=== PATIENT | male | born 1955 | race Caucasian/White ===

== ENCOUNTER 2024-06-15 09:54 | Observation (INO) ==
--- NOTE | 2024-06-03 15:14 | Anesthesiology Consultation ---
Date of Service June 03, 2024 Assessment & Plan (1) Encounter for pre-operative examination: - Check CBC DOS (not done with most recent labs) - Cardiology visit (04/26/24): "...most recent thyroid studies dated 04/20/24 show a suppressed TSH of 0.142 uIu/mL, but his T3 and T4 levels are both within the normal range at 2.84 pg/mL and 1.19 ng/dL respectively. Patient continues to feel poorly when he is in atrial fibrillation, and now that his T3 and T4 levels are within normal range it think it is appropriate to attempt a cardioversion to get him back into a normal sinus rhythm..." > Cardioversion done 04/30/24 at [facility]. 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 Patient has developed abnormal LFTs several times when challenged with small dose of Tapazole therapy. He is not a candidate for GLORIA treatment because of longstanding impact of amiodarone. He will be best benefited by thyroidectomy as it will be a permanent cure for his disease. We will check the blood work again today as he has been off Tapazole now for the last 3 weeks and his body seems to rebound very quickly. Further adjustment will be based on the lab work. I will also connect with the ENT surgeon to see if he needs preparation with SSKI 1 week before the surgery.. Abnormal LFTs.. Improved after discontinuation of Tapazole but will check again today and see what happens." > LFT normalized/WNL on 05/11/24 labs. - PCP visit (05/28/24): "Rapid testing done in our office is positive for influenza A. COVID test negative. I recommend treatment with Tamiflu x 5 days. He was advised to call if symptoms are worsening despite treatment. He should also call if he is seeing more frequent hemoptysis than what he currently describes. His surgery date is 06/15 - I told him that he should feel that he is fully recovered before surgery. If not, he should push back surgery date. He is in agreement and will keep me updated.. He does seem to be back in atrial fibrillation today. His shotweld operator has told him that she does not think he will stay in NSR until his thyroid is removed. At this time, rate is controlled. He is on Xarelto and metoprolol. No changes made today." > At anesthesiologist discretion DOS if updated EKG needed preoperatively from their perspective. - Infectious disease screening: Per PAT overhead line worker on 06/03/24- No known recent infectious disease contacts. Patient tested positive for influenza A 05/28/24. S/P Tamiflu completion. Symptoms resolved except residual "slight" cough and fatigue. DOS 06/15/24. Patient advised to contact surgeon/PAT if not at baseline prior to DOS. Nothing further needed at this time. - Patient acceptable risk for given surgery pending evaluation DOS. Chart Review Chart Review: Patient NOT seen in Pre Admission Testing History Surgery Operation Date: 06/15/24 12:00 Proposed Procedures p Total Thyroidectomy with Complex Wound Repair - Jed Quigley MD Height/Weight Height: 5 ft 11 in Weight: 81.647 kg Allergies Allergy/AdvReac Type Severity Reaction Status Date / Time No Known Drug Allergies Allergy Unknown Verified 06/03/24 14:29 Medications Home Medications Medication Instructions Recorded Confirmed Last Taken sildenafil (pulm.hypertension) 20 100 mg (5 x 20 mg) PO ONCE PRN 06/18/23 06/03/24 Unknown mg tablet sexual activity #30 tabs doxazosin 2 mg tablet 2 mg PO HS high blood pressure #90 04/14/24 06/03/24 Unknown tabs rivaroxaban 20 mg tablet (Xarelto) 20 mg PO QAM #90 tabs 04/19/24 06/03/24 04/29/24 omeprazole 20 mg capsule,delayed 20 mg PO DAILY PRN Acid Reflux 04/21/24 06/03/24 Unknown release metoprolol succinate 25 mg 25 mg PO HS 04/28/24 06/03/24 04/29/24 tablet,extended release 24 hr rosuvastatin 5 mg tablet 5 mg PO UD 04/28/24 06/03/24 Unknown sertraline 50 mg tablet 50 mg PO QAM 04/28/24 06/03/24 Unknown prednisone 20 mg tablet 20 mg PO QAM 05/28/24 06/03/24 Unknown losartan 100 mg tablet 100 mg PO QAM 06/03/24 06/03/24 Unknown Past Medical History Medical History Amiodarone-induced hyperthyroidism Anxiety Atrial fibrillation Most recent cardioversion 04/30/24 Follows with [facility] cardio Chronic venous insufficiency Erectile dysfunction GERD (gastroesophageal reflux disease) Hiatal hernia History of COVID-19 (2021) mild History of diverticulosis HTN (hypertension) Hx of colonic polyps Hyperlipidemia Hyperthyroidism Mitral insufficiency Mitral valve posterior leaflet prolapse moderate MR Myxomatous mitral valve Past Family History Family History Father Diabetes Hypertension Myocardial infarction Sudden Brother Diabetes Denies family history of Ovarian cancer Prostate cancer Breast cancer Lung cancer Colorectal cancer Stroke Past Surgical History Surgical History H/O hernia repair abdominal History of cardiac radiofrequency ablation (2021) [facility] [place] History of cardioversion 2021, 04/30/24 History of cataract surgery R/L History of esophagogastroduodenoscopy (EGD) History of tooth extraction Hx of colonoscopy with polypectomy Hx of vein stripping left leg Nausea and vomiting after administration of anesthetic agent Status post circumferential ablation of pulmonary vein Social History Smoking Status: Never smoker Do You Dip or Chew Tobacco: No Hx Alcohol Use: Yes Alcohol type: beer alcohol intake frequency: a few times a month Alcohol Intake Frequency Comment: socially Hx Substance Use: No substance use type: does not use Lab Results Anesthesia Preop Results Results Anesthesia Widget: Na 136 mmol/L (136-145) 05/11/24 K 4.2 mmol/L (3.5-5.1) 05/11/24 Cl 104 mmol/L (98-107) 05/11/24 CO2 27 mmol/L (21-32) 05/11/24 BUN 19 mg/dl (6-23) 05/11/24 Creat 1.01 mg/dl (0.6-1.4) 05/11/24 Glucose Level 155 mg/dl (70-99(Fasting)) H 05/11/24 TSH 0.329 uIu/ml (0.300-4.500) 05/11/24 Free T4 1.00 ng/dl (0.61-1.60) 05/11/24 SARS-CoV-2, RNA, NAAT Negative 05/28/24 Testing Electrocardiogram Date: 04/30/24 NSR at 73bpm. Minimal voltage criteria for LVH, may be normal variant (R in aVL). Echocardiogram Date: 10/14/22 EF 60-65% Normal LV wall motion Prolapse of the posterior mitral leaflet Moderate mitral regurgitation Grade II diastolic dysfunction Mild tricuspid regurgitation Stress Test Date: 05/29/23 Negative stress echo at 86% MPHR EF 60-65% No regional wall motion abnormalities Mild cLVH Mild LA dilation Myxomatous mitral valve with posterior mitral leaflet prolapse and moderate eccentric mitral regurgitation Other Testing Thyroid ultrasound 01/01/24 1. Slightly heterogeneous thyroid gland with no significant hyperemia shown on color imaging. 2. No suspicious thyroid lesion is seen.
[~2024-06-15 09:54] MED LIST: DEXAMETHASONE SOD INJ 4 MG/ML VIAL ONE; GLYCOPYRROLATE 0.2 MG/ML VIAL ONE; LIDOCAINE 2% 2 ML VIAL/AMP(20MG/ML) INFIL ONE; MIDAZOLAM HCL 1 MG/ML 2ML VIAL ONE; ONDANSETRON INJ 2 MG/ML 2 ML VIAL ONE; PROPOFOL IV EMULSION 10 MG/ML 20 ML VIAL IV ONE; ROCURONIUM BROMIDE 10 MG/ML 5 ML VIAL IV ONE; SUGAMMADEX SODIUM 200 MG/2 ML VIAL IV ONE; fentaNYL citrate PF 100 MCG/2 ML VIAL ONE
[2024-06-15 10:00] LABS: Basophils # (auto) 0.07 K/uL (0.00-0.20); Basophils % (auto) 0.5 %; Eosinophils % (auto) 0.8 %; Hematocrit (blood only) 44.5 % (42.0-52.0); Hemoglobin 14.7 g/dl (14.0-18.0); Immature Granulocytes % (auto) 0.8 %; Lymphocytes % (auto) 14.1 %; Mean Corpuscular Hemoglobin 30.9 pg (25.0-34.0); Mean Corpuscular Volume 93.7 fL (80.0-100.0); Mean Platelet Volume 9.8 fL (9.4-12.4); Monocytes # (auto) 0.67 K/uL (0.11-0.59); Monocytes % (auto) 5.3 %; Neutrophils # (auto) 10.02 K/uL (1.40-6.50); Neutrophils % (auto) 78.5 %; Platelet Count 228 K/uL (130-400); RDW Coefficient of Variation 14.2 % (11.5-14.5); RDW Standard Deviation 49.4 fL (36.4-46.3); Red Blood Count 4.75 M/uL (4.70-6.10); White Blood Count 12.76 K/ul (4.8-10.8)
[2024-06-15] MEDS: LACTATED RINGER'S 1,000 ML IV SCH (10:13)
[2024-06-15] MEDS ORDERED: fentaNYL citrate PF 100 MCG/2 ML VIAL IV PRN (10:24)
[2024-06-15] MEDS ORDERED: ATROPINE SULFATE 0.1 MG/ML 10ML SYR IV PRN (10:24)
[2024-06-15] MEDS ORDERED: ePHEDrine sulfate 50 MG/ML AMP IV PRN (10:24)
[2024-06-15] MEDS ORDERED: ONDANSETRON INJ 2 MG/ML 2 ML VIAL IV PRN ×2 (10:24→13:24)
[2024-06-15] MEDS ORDERED: fentaNYL citrate PF 100 MCG/2 ML VIAL ONE ×2 (10:58→11:29)
--- NOTE | 2024-06-15 11:00 | History & Physical Report ---
Date of Service June 15, 2024 Assessment & Plan (1) Hyperthyroidism: Plan: Plan for total thyroidectomy. The risks of bleeding, infection, permanent or temporary hypocalcemia, permanent injury to the recurrent laryngeal nerve (unilateral or bilateral requiring tracheostomy) and/or need for further surgery discussed. (2) Thyroiditis: History of Present Illness Chief Complaint: Hyperthyroidism Primary Care Provider: Jessica Moore MD 69 year old male with amiodarone induced hyperthyroidism. Recommended by Endocrine for a total thyroidectomy. Allergies Allergy/AdvReac Type Severity Reaction Status Date / Time No Known Drug Allergies Allergy Unknown Verified 06/15/24 09:44 Home Medications Medication Instructions Recorded Confirmed Type rivaroxaban 20 mg tablet (Xarelto) 20 mg PO QAM #90 tabs 04/19/24 06/15/24 Rx omeprazole 20 mg capsule,delayed 20 mg PO DAILY PRN Acid Reflux 04/21/24 06/15/24 History release metoprolol succinate 25 mg 25 mg PO HS 04/28/24 06/15/24 History tablet,extended release 24 hr rosuvastatin 5 mg tablet 5 mg PO UD 04/28/24 06/15/24 History sertraline 50 mg tablet (Zoloft) 50 mg PO QAM 04/28/24 06/15/24 History prednisone 20 mg tablet 20 mg PO QAM 05/28/24 06/15/24 History hydrocodone 5 mg-acetaminophen 325 1 tab PO Q6H PRN pain 6 days #36 06/14/24 06/15/24 Rx mg tablet tabs ondansetron HCl 8 mg tablet 8 mg PO Q12H PRN nausea and 06/14/24 06/15/24 Rx vomiting 6 days #12 tabs doxazosin 2 mg tablet (Cardura) 2 mg PO HS high blood pressure 06/15/24 06/15/24 History losartan 100 mg tablet (Cozaar) 100 mg PO QAM 06/15/24 06/15/24 History sildenafil (pulm.hypertension) 20 100 mg PO ONCE PRN sexual activity 06/15/24 06/15/24 History mg tablet (Revatio) Past Med/Surg History Problem List Impotence Hyperthyroidism Thyroiditis Myxomatous mitral valve Gynecomastia Amiodarone-induced hyperthyroidism Anxiety (Chronic) GERD (gastroesophageal reflux disease) (Chronic) Hyperlipidemia (Chronic) Chronic venous insufficiency (Chronic) Hiatal hernia (Chronic) Mitral valve posterior leaflet prolapse (Chronic) Atrial fibrillation (Chronic) Impaired fasting glucose (Chronic) 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) Encounter for pre-operative examination Erectile dysfunction (Chronic) Mitral insufficiency (Chronic) HTN (hypertension) (Chronic) Medical History Amiodarone-induced hyperthyroidism Anxiety Atrial fibrillation Most recent cardioversion 04/30/24 Follows with [facility] cardio Chronic venous insufficiency Erectile dysfunction GERD (gastroesophageal reflux disease) Hiatal hernia History of COVID-19 (2021) mild History of diverticulosis HTN (hypertension) Hx of colonic polyps Hyperlipidemia Hyperthyroidism Mitral insufficiency Mitral valve posterior leaflet prolapse moderate MR Myxomatous mitral valve Surgical History H/O hernia repair abdominal History of cardiac radiofrequency ablation (2021) [facility] [place] of cardioversion 2021, 04/30/24 History of cataract surgery R/L History of esophagogastroduodenoscopy (EGD) History of tooth extraction Hx of colonoscopy with polypectomy Hx of vein stripping left leg Nausea and vomiting after administration of anesthetic agent Status post circumferential ablation of pulmonary vein Family History Father Diabetes Hypertension Myocardial infarction Sudden Brother Diabetes Denies family history of Ovarian cancer Prostate cancer Breast cancer Lung cancer Colorectal cancer Stroke Social History Smoking Status: Never smoker Second Hand Exposure: No; Do You Dip or Chew Tobacco: No; Tobacco Cessation Education Requested by Patient: No Hx Alcohol Use: Yes Alcohol type: beer Alcohol Intake Frequency: 2-3 x/Week Hx Substance Use: No Preferred Language: Georgian Communication Ability: Effective Visual Impairment: No Limitations Hearing Ability: Hard of Hearing Senior [employer] Consultant Required: No Beliefs That Will Affect Care: None marital status: Current Living Situation: Spouse current occupational status: retired Other Information That Helps Us Care for You: No Feels Safe at Home: Yes Safety Concerns: Feels Safe At This Time Childhood Exposure to Second-Hand Smoke: No Diet: regular caffeine: Yes during the past year weight has: remained stable Dental Care, Regularly: Yes Physical Activity Frequency: Daily Seatbelt Use: always Sunscreen Use: Yes Assistive Devices: None Review of Systems Review of Systems: No pertinent ROS positives unless otherwise mentioned in the HPI Physical Exam Physical Exam: Ears: Normal pinna Nose: No external deformity Neck: trachea midline Neuro: Alert and oriented, Moves all 4 extremities, Symmetric and normal facial nerve function Derm: No lesions noted on face or neck Cardiovascular: No JVD Results & Data Results & Data Vital Signs (Past 12 Hours) Vital Signs Temp Pulse Resp BP Pulse Ox O2 Del Method 06/15/24 09:51 37.1 C 89 18 154/93 H 97 Room Air Diagnostic Findings Thyroid US revealed largest lobe dimension of 6.0 and 5.5 on the opposite side. PG Care Time/CCT Total # of Minutes Spent Total Time Spent with Patient: Total time spent is greater than 50% in coordination of care (as documented) at patient's floor/unit and/or counseling patient: Coding Level of Care Code 10185 INT INP/OBS CARE 1/40MIN Diagnoses Hyperthyroidism E05.90 Thyroiditis E06.9
[2024-06-15] MEDS ORDERED: PHENYLEPHRINE HCL 10 MG/ML VIAL ONE (11:46)
[2024-06-15] MEDS ORDERED: HYDROmorphone INJ 2 MG/ML SYR/VIAL ONE (11:57)
[2024-06-15] MEDS: LIDOCAINE 1%/EPINEPHRINE 1:100,000 50 ML VIAL ONE (13:16)
--- NOTE | 2024-06-15 13:24 | Post Operative Brief Note ---
PG Immediate Post Op with CF Date of Surgery June 15, 2024 Pre & Post Diagnosis Operation Date: 06/15/24 11:05 Pre-Op Diagnosis: Hyperthyroidism Post-Op Diagnosis: Hyperthyroidism I identified the patient and participated in the time-out.: No Procedure Operation Date: 06/15/24 11:05 Actual Procedures p Total Thyroidectomy with Complex Wound Repair(Not Applicable) - Jed Quigley MD Surgeon Jed Quigley MD Human Resources Operations Director none Estimated Blood Loss 55 Findings Consistent with Post-Op Diagnosis Specimens Specimen Description: A) Total Thyroid, stitch= left superior lobe
[2024-06-15] MEDS: METOPROLOL TARTRATE 1 MG/ML VIAL IV STA ×2 (14:13→18:17)
[2024-06-15] MEDS: METOPROLOL TARTRATE 1 MG/ML VIAL IV ONE ×2 (14:14→18:17)
[2024-06-15 14:41] LABS: Calcium 8.9 mg/dl (8.6-10.3)
--- NOTE | 2024-06-15 16:10 | Hospitalist Consultation ---
Date of Consultation June 15, 2024 Assessment & Plan (1) Hyperthyroidism: 69-year-old male with a history of recurrent A-fib despite ablation and cardioversion who presented for scheduled thyroidectomy due to amiodarone induced hyperthyroidism. We are consulted for postop management due to A-fib RVR. On initial exam he is in RVR but does not show signs of thyrotoxicosis and in particular there is no diaphoresis sweating or confusion. Patient was transferred to PCU for further care and given an additional dose of IV metoprolol along with 6 mg of maxim Amiodarone induced hyperthyroidism With transaminitis due to methimazole, not a candidate for GLORIA treatment. - s/p thyroidectomy 06/15/24. At risk of perioperative thyrotoxicosis Tachycardic with history of A-fib. No hypothermia or confusion. No sweating. 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 Discussed with endocrinology if patient develops evidence of thyroid storm recommend to be treated with high-dose steroids and beta-blockers. Free T4/T3 pending Atrial fibrillation Underwent electrical cardioversion 04/30/2024 to sinus rhythm Rivaroxaban was held preoperatively. Resume for stroke prophylaxis when okay per surgical team - Continue MTP HS S/p 5 mg x 1 metoprolol. Normotensive on assessments, rates 110-130. Additional 2.5mg IV x1 ordered, home PO continued Hypertension Losartan temporarily held to allow for additional beta-flako titration as needed DVT prophylaxis: Hold chemical prophylaxis at this time. Discussed with surgical team, they will advise when OK to switch to chemical ppx from a bleeding risk standpoint. Continue SCDs Diet: Heart healthy Disposition: PCU CODE STATUS: Full code (2) Hyperlipidemia: (3) Atrial fibrillation: (4) HTN (hypertension): History of Present Illness Attending Physician: Jed Quigley MD History of Present Illness Lauren Mccoy is a 69-year-old male with a past medical history of thyroiditis, GERD, hyperlipidemia, A-fib on rivaroxaban who presented for scheduled total thyroidectomy with complex wound repair due to hypothyroidism we are consulted for postprocedural A-fib RVR. Guillermo seen bedside. He reports that he has a history of A-fib post ablation and cardioversion but with return to A-fib recently. Was controlled before his p rocedure. Postprocedure he reports he does have some incisional pain on his neck but does not have palpitations, chest pain, shortness of breath, difficulty breathing. He does not feel sweaty or warm. He answers questions appropriately and does not feel confused. He reports that he did have liver troubles while he was on medicines for his thyroid, has not taken these recently and as far as he knows his liver numbers returned to normal. He had been taking prednisone 20 mg daily in the morning. He takes his metoprolol at night and did not take this today. Medical History: Reviewed Medications: Reviewed Surgical History: Reviewed Family history: Reviewed Allergies: Reviewed Social History: Reviewed Code Status: Full Allergies Allergy/AdvReac Type Severity Reaction Status Date / Time No Known Drug Allergies Allergy Unknown Verified 06/15/24 09:44 Home Medications Medication Instructions Recorded Confirmed Type rivaroxaban 20 mg tablet (Xarelto) 20 mg PO QAM #90 tabs 04/19/24 06/15/24 Rx omeprazole 20 mg capsule,delayed 20 mg PO DAILY PRN Acid Reflux 04/21/24 06/15/24 History release metoprolol succinate 25 mg 25 mg PO HS 04/28/24 06/15/24 History tablet,extended release 24 hr rosuvastatin 5 mg tablet 5 mg PO UD 04/28/24 06/15/24 History sertraline 50 mg tablet (Zoloft) 50 mg PO QAM 04/28/24 06/15/24 History prednisone 20 mg tablet 20 mg PO QAM 05/28/24 06/15/24 History hydrocodone 5 mg-acetaminophen 325 1 tab PO Q6H PRN pain 6 days #36 06/14/24 06/15/24 Rx mg tablet tabs ondansetron HCl 8 mg tablet 8 mg PO Q12H PRN nausea and 06/14/24 06/15/24 Rx vomiting 6 days #12 tabs doxazosin 2 mg tablet (Cardura) 2 mg PO HS high blood pressure 06/15/24 06/15/24 History losartan 100 mg tablet (Cozaar) 100 mg PO QAM 06/15/24 06/15/24 History sildenafil (pulm.hypertension) 20 100 mg PO ONCE PRN sexual activity 06/15/24 06/15/24 History mg tablet (Revatio) Patient History Medical History Amiodarone-induced hyperthyroidism Anxiety Atrial fibrillation Most recent cardioversion 04/30/24 Follows with [facility] Chronic venous insufficiency Erectile dysfunction GERD (gastroesophageal reflux disease) Hiatal hernia History of COVID-19 (2021) mild History of diverticulosis HTN (hypertension) Hx of colonic polyps Hyperlipidemia Hyperthyroidism Mitral insufficiency Mitral valve posterior leaflet prolapse moderate MR Myxomatous mitral valve Surgical History H/O hernia repair abdominal History of cardiac radiofrequency ablation (2021) [facility] [place] of cardioversion 2021, 04/30/24 History of cataract surgery R/L History of esophagogastroduodenoscopy (EGD) History of tooth extraction Hx of colonoscopy with polypectomy Hx of vein stripping left leg Nausea and vomiting after administration of anesthetic agent Status post circumferential ablation of pulmonary vein Family History Father Diabetes Hypertension Myocardial infarction Sudden Brother Diabetes Denies family history of Ovarian cancer Prostate cancer Breast cancer Lung cancer Colorectal cancer Stroke Social History Smoking Status: Never smoker Second Hand Exposure: No; Do You Dip or Chew Tobacco: No; Tobacco Cessation Education Requested by Patient: No Hx Alcohol Use: Yes Alcohol type: beer Alcohol Intake Frequency: 2-3 x/Week Hx Substance Use: No Preferred Language: Malaysian Communication Ability: Effective Visual Impairment: No Limitations Hearing Ability: Hard of Hearing Confidential Secretary Required: No Beliefs That Will Affect Care: None marital status: Current Living Situation: Spouse current occupational status: retired Other Information That Helps Us Care for You: No Feels Safe at Home: Yes Safety Concerns: Feels Safe At This Time Childhood Exposure to Second-Hand Smoke: No Diet: regular caffeine: Yes during the past year weight has: remained stable Dental Care, Regularly: Yes Physical Activity Frequency: Daily Seatbelt Use: always Sunscreen Use: Yes Assistive Devices: None Physical Exam Physical Exam: General: A&Ox3. NAD. Cooperative. Skin is warm and dry. No diaphoresis HEENT: Postop incision at base of anterior neck intact, without dehiscence or discharge. Pulm: CTAB A&P. -wheezes, -rales, -rhonchi. Symmetrical chest rise. No increased work of breathing. No respiratory distress. Cardiac: Tachycardic, irregular. soft sm. Radial pulses intact and symmetrical. Results & Data Results & Data Vital Signs (Past 12 Hours) Vital Signs Temp Pulse Pulse Resp BP BP Pulse Ox 06/15/24 15:54 36.3 C L 126 H 16 109/64 92 06/15/24 15:19 36.3 C L 125 H 14 131/88 93 06/15/24 15:00 36.6 C 107 H 13 127/84 93 06/15/24 14:50 113 H 14 122/90 95 06/15/24 14:35 109 H 13 133/96 98 06/15/24 14:25 114 H 13 138/108 H 98 06/15/24 14:15 134 H 18 146/115 H 94 06/15/24 14:13 139 H 141/106 H 06/15/24 14:05 133 H 12 140/100 99 06/15/24 13:55 139 H 17 146/105 H 98 06/15/24 13:45 127 H 12 146/96 H 97 06/15/24 13:36 36.6 C 121 H 12 122/91 96 06/15/24 09:51 37.1 C 89 18 154/93 H 97 O2 Del Method O2 Flow Rate 06/15/24 15:54 Room Air 06/15/24 15:19 Room Air 06/15/24 15:00 Room Air 0 06/15/24 14:50 Room Air 0 06/15/24 14:35 Oxymask 4 06/15/24 14:25 Oxymask 4 06/15/24 14:15 Oxymask 4 06/15/24 14:13 06/15/24 14:05 Oxymask 8 06/15/24 13:55 Oxymask 15 06/15/24 13:45 Oxymask 8 06/15/24 13:36 Oxymask 8 06/15/24 09:51 Room Air PG Care Time/CCT Total # of Minutes Spent Total Time Spent with Patient: Total time spent is greater than 50% in coordination of care (as documented) at patient's floor/unit and/or counseling patient: Coding Level of Care Code 35753 IN/OBS CONSULT LVL 5,80M Diagnoses Hyperthyroidism E05.90 Hyperlipidemia, unspecified hyperlipidemia type E78.5 Hyperlipidemia type: unspecified Paroxysmal atrial fibrillation I48.0 Atrial fibrillation type: paroxysmal Primary hypertension I10 Hypertension type: primary hypertension (2) Hyperlipidemia Hyperlipidemia type: unspecified Qualified Code(s): E78.5 - Hyperlipidemia, unspecified (3) Atrial fibrillation Atrial fibrillation type: paroxysmal Qualified Code(s): I48.0 - Paroxysmal atrial fibrillation (4) HTN (hypertension) Hypertension type: primary hypertension Qualified Code(s): I10 - Essential (primary) hypertension
[2024-06-15] MEDS ORDERED: DEXAMETHASONE SOD INJ 4 MG/ML VIAL IV STA (16:34)
[2024-06-15 17:37] LABS: T4 Free Thyroxine 1.18 ng/dl (0.61-1.60)
[2024-06-15] MEDS: dexAMETHasone 6 MG in SYRINGE 0 ML IV ONE (17:50)
[2024-06-15] MEDS: HYDROCODONE/ACETAMOPHEN 5/325MG TAB PO PRN (18:16)
[2024-06-15] MEDS: METOPROLOL SUCC 25MG EXT REL TAB PO SCH (22:12)
[2024-06-16 07:14] LABS: Basophils # (auto) 0.02 K/uL (0.00-0.20); Basophils % (auto) 0.1 %; Hematocrit (blood only) 41.9 % (42.0-52.0); Hemoglobin 14.2 g/dl (14.0-18.0); Immature Granulocytes # (auto) 0.11 K/uL (0.01-0.20); Immature Granulocytes % (auto) 0.7 %; Lymphocytes # (auto) 1.34 K/uL (1.20-3.40); Mean Corpuscular Hemoglobin 31.1 pg (25.0-34.0); Mean Corpuscular Hgb Conc 33.9 g/dL (32.0-36.0); Mean Corpuscular Volume 91.9 fL (80.0-100.0); Mean Platelet Volume 9.9 fL (9.4-12.4); Monocytes # (auto) 1.31 K/uL (0.11-0.59); Monocytes % (auto) 8.8 %; Neutrophils # (auto) 12.14 K/uL (1.40-6.50); Neutrophils % (auto) 81.4 %; Platelet Count 225 K/uL (130-400); RDW Coefficient of Variation 14.2 % (11.5-14.5); Red Blood Count 4.56 M/uL (4.70-6.10); White Blood Count 14.92 K/ul (4.8-10.8)
[2024-06-16 07:39] LABS: Potassium 4.4 mmol/L (3.5-5.1)
[2024-06-16 07:40] LABS: Albumin Globulin Ratio 1.8 (0.9-2); BUN Creatinine Ratio 22.9 (10-20); Bilirubin,Total 1.1 mg/dl (0.2-1.0); Creatinine Clr Calc Pharmacy 89.5 ml/min; Globulin 2.2 gm/dl (2.5-4.0); Total Protein 6.2 gm/dl (6.0-8.3)
[2024-06-16] MEDS: SERTRALINE HCL 50 MG TABLET PO SCH (08:41)
[2024-06-16] MEDS: CLINDAMYCIN HCL 150 MG CAP PO SCH (08:42)
[2024-06-16] MEDS: CLINDAMYCIN HCL 150 MG CAP PO ONE (08:50)
[2024-06-16] MEDS: METOPROLOL SUCC 25MG EXT REL TAB PO SCH (09:31)
--- NOTE | 2024-06-16 11:02 | Hospitalist Progress Note ---
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 We are consulted for postop management due to A-fib RVR. On initial exam he is in RVR but does not show signs of thyrotoxicosis and in particular there is no diaphoresis sweating or confusion. Patient was transferred to PCU for further care and given an additional dose of IV metoprolol along with 6 mg of maxim Amiodarone induced hyperthyroidism With transaminitis due to methimazole, not a candidate for GLORIA treatment. - s/p thyroidectomy 06/15/24. Free T3/Free T4, PTH levels stable following operation. Tachycardic with history of A-fib. No hypothermia or confusion. No sweating. Not appear to be in thyroid storm - s/p IV dexamethasone 06/15. 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 Discussed with endocrinology if patient develops evidence of thyroid storm recommend to be treated with high-dose steroids and beta-blockers. Discussed w/ endocrinology that patient should be started on Synthroid at 1.3mcg/kg of body weight. Discharged home on 100mcg Synthroid daily. Recommend close follow up w/ endocrinology to ensure levels are stable upon discharge. Atrial fibrillation Underwent electrical cardioversion 04/30/2024 to sinus rhythm Rivaroxaban was held preoperatively. May resume 72 hours after surgery. - Switched to metoprolol succinate 25mg twice daily. - Recommend obtaining pulse oximetry monitor for home to monitor HR. - Follow up closely w/ PCP and cardiology upon discharge. Hypertension Losartan and Doxasin held on discharge until patient follows up w/ PCP. Discussed w/ primary team that patient would be safe for discharge from a medical standpoint given that his HR has returned to normal range. (2) Hyperlipidemia: (3) Atrial fibrillation: (4) HTN (hypertension): Admission and Anticipated Discharge Date Admission Date: June 15, 2024 Subjective Patient seen and examined this morning. Patient reports to be feeling well today following his operation yesterday. He states he has had issues of A fib prior to his operation and has had two failed cardioversions outpatient. He states he felt himself go back into A fib prior to the operation. he denied CP, SOB, palpitations, dizziness. Physical Exam Constitutional: WD/WN, vitals as above Eyes: PERRL, conjunctivae normal, anicteric sclerae ENMT: incision site without drainage or fluid collections. ecchymosis. Respiratory: normal respiratory effort, lungs clear to auscultation Cardiovascular: irregular, no murmur, no LE edema Psychiatric: A+Ox3, euthymic affect Results & Data Results & Data Vital Signs (Past 12 Hours) Vital Signs Temp Pulse Pulse Resp BP Pulse Ox O2 Del Method 06/16/24 07:57 36.5 C 108 H 18 135/70 95 Room Air 06/16/24 03:01 36.2 C L 114 H 16 128/88 93 Room Air 06/15/24 23:50 36.3 C L 101 H 16 132/87 94 Room Air 06/15/24 23:28 97 H PG Care Time/CCT Total # of Minutes Spent Total Time Spent with Patient: Total time spent is greater than 50% in coordination of care (as documented) at patient's floor/unit and/or counseling patient: Coding Level of Care Code 31568 SUB INP/OBS CARE 3/50MIN Diagnoses Hyperthyroidism E05.90 Hyperlipidemia, unspecified hyperlipidemia type E78.5 Hyperlipidemia type: unspecified Paroxysmal atrial fibrillation I48.0 Atrial fibrillation type: paroxysmal Primary hypertension I10 Hypertension type: primary hypertension (2) Hyperlipidemia Hyperlipidemia type: unspecified Qualified Code(s): E78.5 - Hyperlipidemia, unspecified (3) Atrial fibrillation Atrial fibrillation type: paroxysmal Qualified Code(s): I48.0 - Paroxysmal atrial fibrillation (4) HTN (hypertension) Hypertension type: primary hypertension Qualified Code(s): I10 - Essential (primary) hypertension
--- NOTE | 2024-06-16 11:47 | Ears,Nose,Throat Progress Note ---
Date of Service June 16, 2024 Assessment & Plan (1) Thyroiditis: Plan: Doing well after thyroidectomy. No sign of RLN injury nor hypoparathyroidism. Safe for discharge. Appreciate hospitalist consultation and help with management of Synthroid and atrial fibrillation. There was an elevated WBC but no fevers or signs of infection. Suspect from corticosteroids. Patient to follow up in 7-10 days for path or sooner if problems. Admission and Anticipated Discharge Date Admission Date: June 15, 2024 Subjective POD 1 s/p total thyroidectomy. Good voice. Swallowing normally. Feels fine. Review of Systems Review of Systems: No pertinent ROS positives unless otherwise mentioned in the HPI Physical Exam Physical Exam: Incision CDI, significant ecchymosis. No fluid collections. Voice strong. Results & Data Vital Signs (Past 12 Hours) Vital Signs Temp Pulse Resp BP Pulse Ox O2 Del Method 06/16/24 07:57 36.5 C 108 H 18 135/70 95 Room Air 06/16/24 03:01 36.2 C L 114 H 16 128/88 93 Room Air 06/15/24 23:50 36.3 C L 101 H 16 132/87 94 Room Air Laboratory Results Calcium and PTH have risen since surgery. PG Care Time/CCT Total # of Minutes Spent Total Time Spent with Patient: Total time spent is greater than 50% in coordination of care (as documented) at patient's floor/unit and/or counseling patient: Coding Level of Care Code 04180 SUB INP/OBS CARE 04/24MIN Diagnoses Thyroiditis E06.9
[2024-06-16 11:58] VITALS: BP 120/68; PULSE 87; RESP 20; TEMP 98.6; O2SAT 96
--- NOTE | 2024-06-18 09:07 | Operative Report ---
PG Post Operative Report Pre & Post Diagnosis Operation Date: 06/15/24 11:05 Pre-Op Diagnosis: Hyperthyroidism Post-Op Diagnosis: Hyperthyroidism I identified the patient and participated in the time-out.: No Procedure Operation Date: 06/15/24 11:05 Actual Procedures p Total Thyroidectomy with Complex Wound Repair(Not Applicable) - Jed Quigley MD Surgeon Jed Quigley MD Hydrologist none Estimated Blood Loss 55 Findings Consistent with Post-Op Diagnosis Specimens Total thyroid Description of Procedure The patient was met in the pre-operative holding area where operative consent and medical history were updated. The patient was taken back to the operating room and placed on the table in supine position. General endotracheal anesthesia was induced with a NIMs tube and the NIMs device was checked for function. The patient was prepped and draped in the normal sterile fashion.The 5 cm skin incision was injected with 2 mLs of 1% Lidocaine with 1:100,000 epinephrine.Incision was carried sharply with a #15 blade through the skin and subcutaneous tissue. The platysma was divided with the Bovie electro cautery at a setting of 15. The strap muscles were divided in a vertical fashion in the midline. A self-retraining clamp was placed. The thyroid gland was readily visible and palpable at this point. Blunt dissection with the [place] and then spreading with the clamp freed the entire superficial surface of the gland. An [place] was placed at the superior pole and superior pole attachments were developed with the right angle and removed with the bipolar at a setting of 15. The inferior pole was freed in the same fashion. Due to the size of the gland and how hard the gland was with multiple nodues, I enlarged the incision by 1 cm to be able to roll the entire lobe out of the wound. An [place] clamp was placed on the gland and it was rotated out of the incision. The tubercle was identified and careful blunt dissection was used to find the recurrent laryngeal nerve. This was stimulated to ensure its location. Remaining thyroid attachments were then divided using the bipolar and scissors. The opposite side was done in exactly the same fashion with the same findings. The entire gland was passed off for permanent specimen with a stitch placed in the superior pole. The area was then irrigated with 400 mLs of normal sterile saline. Areas of bleeding were cauterized with the bipolar. The incision was closed in layers with 3-0 and then 4-0 Vicryl interrupted sutures. Approximately 8-10 of each. A final layer of Dermabond was applied. The patient was passed back to anesthesia, awakened, extubated and taken to the recovery room in stable condition. The patients voice was checked in the recovery area and noted to be normal and strong. I attest to the content of the Intraoperative Record and any orders documented therein. Any exceptions are noted below.
--- NOTE | 2024-06-18 09:08 | Discharge Summary ---
Date of Service June 18, 2024 Admission HPI Per Admitting Provider 69 year old male with amiodarone induced hyperthyroidism. Recommended by Endocrine for a total thyroidectomy. Discharge Data Consultations 06/15/24 13:24 Consult Hospitalist Routine Procedures Performed Operation Date: 06/15/24 11:05 Actual Procedures p Total Thyroidectomy with Complex Wound Repair(Not Applicable) - Jed Quigley MD Hospital Course (1) Thyroiditis: Doing well after thyroidectomy. No sign of RLN injury nor hypoparathyroidism. Safe for discharge. Appreciate hospitalist consultation and help with management of Synthroid and atrial fibrillation. There was an elevated WBC but no fevers or signs of infection. Suspect from corticosteroids. Patient to follow up in 7-10 days for path or sooner if problems.
== END 2024-06-16 13:13 | disposition home or self-care (01) ==
LOC: 3N 09:54 → ASU 09:54 → 2S 17:59